=== PATIENT | female | born 1985 | race Caucasian/White ===

== ENCOUNTER 2019-04-01 19:14 | Emergency (ER) | payer BC ==
[~2019-04-01] VITALS: Ht 165.1 cm; Wt 70.3 kg
[2019-04-01 19:28] VITALS: BP 120/78
[2019-04-01] MEDS ORDERED: IBUPROFEN 600 MG TABLET PO ONE ×2 (19:46→20:00)
== END 2019-04-01 20:41 | disposition home or self-care (01) ==
LOC: ER 19:19
DX: S93.491A Sprain of other ligament of right ankle, initial encounter (principal); X50.1XXA Overexertion from prolonged static or awkward postures, initial encounter; Y93.89 Activity, other specified; Y92.89 Other specified places as the place of occurrence of the external cause; Y99.8 Other external cause status
CPT/HCPCS: 73610-TC